=== PATIENT | male | born 1990 | race Caucasian/White ===

== ENCOUNTER 2018-08-28 09:06 | Emergency (ER) | payer OTHER ==
[2018-08-28 09:45] VITALS: BP 117/81
--- NOTE | 2018-08-28 09:59 | UC ---
Throat Pain/Nasal Iglesia HPI - HPI Summary HPI Summary: sore throat x 4 days pain is sever , 7 out of 10 , worse with eating , better with Tylenol mild cough , no nasal congestion . low grade fever has been having dental work done - History of Current Complaint Chief Complaint: UCRespiratory Stated Complaint: SORE THROAT Time Seen by Provider: 08/28/18 09:39 Hx Obtained From: Patient, Family/Public Relations Intern Onset/Duration: Gradual Onset, Lasting Days - 4, Still Present Severity: Moderate Pain Intensity: 7 Cough: Nonproductive Associated Signs & Symptoms: Positive: Fever, Vomiting. Negative: Dysphagia, FB Sensation, Drooling, Wheezing, Hoarseness, Sinus Discomfort, Nasal Discharge , Rash - Allergies/Home Medications Allergies/Adverse Reactions: Allergies Allergy/AdvReac Type Severity Reaction Status Date / Time paroxetine Allergy Intermediate TREMOR Verified 08/28/18 09:34 Home Medications: Home Medications Ibuprofen TAB* [Advil TAB*] 200 mg PO Q6H PRN 08/28/18 [History Confirmed ] Paliperidone SUSTENNA* [Invega Sustenna*] 39 mg IM 08/28/18 [History] PMH/Surg Hx/FS Hx/Imm Hx Respiratory History: Asthma Psychological History: Schizophrenia - Surgical History Surgical History: Yes Surgery Procedure, Year, and Place: Facial reconstruction following snowboarding accident - Family History Known Family History: Negative: Diabetes - Social History Alcohol Use: Occasionally Substance Use Type: None Substance Use Comment - Amount & Last Used: Denies, but urine positive for marijuana Smoking Status (MU): Never Smoked Tobacco - Immunization History Most Recent Influenza Vaccination: Unsure Most Recent Tetanus Shot: Unsure Most Recent Pneumonia Vaccination: Never Review of Systems All Other Systems Reviewed And Are Negative: Yes Constitutional: Positive: Fever, Chills, Fatigue Skin: Positive: Negative Eyes: Positive: Negative ENT: Positive: Sore Throat Respiratory: Positive: Cough Cardiovascular: Positive: Negative Is Patient Immunocompromised?: No Physical Exam Triage Information Reviewed: Yes Appearance: Well-Appearing, No Pain Distress, Well-Nourished Vital Signs: Initial Vital Signs Temp 98.2 F 08/28/18 09:37 Pulse 104 08/28/18 09:37 Resp 18 08/28/18 09:37 BP 117/81 08/28/18 09:37 Pulse Ox 100 08/28/18 09:37 Vital Signs Reviewed: Yes Eye Exam: Normal Eyes: Positive: Conjunctiva Clear ENT: Positive: Normal ENT inspection, Hearing grossly normal, Pharyngeal erythema, Other - canker sores. Negative: Nasal congestion, Nasal drainage Neck: Positive: Supple, Nontender, No Lymphadenopathy Respiratory: Positive: Chest non-tender, Lungs clear, Normal breath sounds Cardiovascular: Positive: Tachycardia Abdominal Exam: Normal Abdomen Description: Positive: Nontender, Soft. Negative: CVA Tenderness (R), CVA Tenderness (L), Distended, Guarding Bowel Sounds: Positive: Present Skin Exam: Normal Throat Pain/Nasal Course/Dx - Differential Dx/Diagnosis Provider Diagnosis: Canker sores oral Discharge - Sign-Out/Discharge Documenting (check all that apply): Patient Departure All imaging exams completed and their final reports reviewed: No Studies - Discharge Plan Condition: Stable Disposition: HOME Patient Education Materials: Canker Sores (ED) Referrals: Pacheco Tavarez MD [Primary Care Provider] - If Needed Additional Instructions: negative rapid strep viral illness - Billing Disposition and Condition Condition: STABLE Disposition: Home
== END 2018-08-28 10:06 | disposition home or self-care (01) ==
LOC: UCCORT 09:06
DX: K12.0 Recurrent oral aphthae (principal); J45.909 Unspecified asthma, uncomplicated; F20.9 Schizophrenia, unspecified; Z88.8 Allergy status to other drugs, medicaments and biological substances
CPT/HCPCS: 87651; 99201; G0463